=== PATIENT | female | born 1985 | race Caucasian/White ===

== ENCOUNTER 2018-08-30 06:44 | Emergency (ER) | payer MEDICAID ==
[~2018-08-30] VITALS: Wt 61.9 kg
[2018-08-30 06:49] VITALS: BP 122/70; PULSE 84; RESP 16
[2018-08-30] MEDS ORDERED: BENZ-6 PO (07:32)
[2018-08-30] MEDS ORDERED: PROM6.2515 PO (07:32)
[2018-08-30] MEDS ORDERED: AZIT250T PO (07:32)
--- NOTE | 2018-08-30 08:01 | ERD ---
ER Documentation Chief Complaint Chief Complaint COUGH WITH PHLEGM X1 WEEK, MILD SOB, NO FEVER HPI 33-year-old female presenting with productive cough times 1 week. Patient had tactile fevers but no documented fever. Patient has been taking Mucinex. She states not helping. Has tried Delsym with no alleviation. She denies any runny nose or cough. Denies any respiratory problems in the past. Medical history denies. Surgical history denies. Social history denies. No allergies to medications ROS All systems reviewed and are negative except as per history of present illness. Medications Home Meds Active Scripts Benzonatate* (Tessalon Perle*) 100 Mg Capsule, 100 MG PO Q8H PRN for COUGH, #30 CAP Prov:MIO CONWAY PA-C 08/30/18 Promethazine Hcl* (Promethazine Hcl* Syrup) 6.25 Mg/5 Ml Syrup, 6.25 MG PO Q6H PRN for COUGH, #100 ML Prov:MIO CONWAY PA-C 08/30/18 Azithromycin* (Zithromax*) 250 Mg Tablet, 250 MG PO .ZPACK DIRECTED, #6 TAB TAKE 500 MG (2 TABS) THE FIRST DAY THEN 250 MG (1 TAB) DAYS 2-5 Prov:MIO CONWAY PA-C 08/30/18 PMhx/Soc Medical and Surgical Hx: pt denies Medical Hx, pt denies Surgical Hx Hx Alcohol Use: No Hx Substance Use: No Hx Tobacco Use: No Smoking Status: Never smoker FmHx Family History: No diabetes, No coronary disease, No other Physical Exam Vitals Vital Signs Date Temp Pulse Resp B/P (MAP) Pulse Ox O2 O2 Flow FiO2 Time Delivery Rate 08/30/18 97.3 84 16 122/70 100 06:49 (87) Physical Exam GENERAL: The patient is well-appearing, well-nourished, in no acute distress HEENT: Atraumatic. Conjunctivae are pink. Pupils equal, round, and reactive to light. There is no scleral icterus. Tympanic membranes clear bilaterally. Oropharynx clear. No nystagmus or photophobia. NECK: C-spine is soft and supple. There is no meningismus. There is no cervical lymphadenopathy. CHEST: Clear to auscultation bilaterally. There are no rales, wheezes or rhonchi. HEART: Regular rate and rhythm. No murmurs, clicks, rubs or gallops. No S3 or S4. Procedures/MDM DIAGNOSTIC IMAGING REPORT Patient: LUCIA PEREZ : 1985 Age: 33 Sex: F MR #: [id number] DOS: 08/30/18 0657 Ordering MD: RADHA CONWAY PA-C Location: [facility] Room/Bed: PROCEDURE: XR Chest. CLINICAL INDICATION: Cough TECHNIQUE: A single AP view of the chest was obtained. COMPARISON: None. FINDINGS: No focal airspace opacification, pleural effusion or pneumothorax is seen. The cardiomediastinal silhouette is within normal limits for size. The osseous structures are unremarkable. IMPRESSION: Unremarkable chest x-ray. MDM: 33-year-old female presenting with cough. Patient for respiratory distress or hypoxia. I have low suspicion for pneumonia. Patient likely has viral cough. Patient is discharged with supportive medications. I will give antibiotics and recommend patient to refrain from taking medication for the next 2-4 days. Patient was recommended to take supportive medication to antibiotic treatment. Patient is told symptoms change or worsen to immediately return to the ER. All questions answered at discharge Departure Diagnosis: Primary Impression: Cough Condition: Stable Patient Instructions: Cough, Chronic, Uncertain Cause, (Adult) Referrals: [facility] YOU HAVE RECEIVED A MEDICAL SCREENING EXAM AND THE RESULTS INDICATE THAT YOU DO NOT HAVE A CONDITION THAT REQUIRES URGENT TREATMENT IN THE EMERGENCY DEPARTMENT. FURTHER EVALUATION AND TREATMENT OF YOUR CONDITION CAN WAIT UNTIL YOU ARE SEEN IN YOUR DOCTORS OFFICE WITHIN THE NEXT 1-2 DAYS. IT IS YOUR RESPONSIBILITY TO MAKE AN APPOINTMENT FOR FOLOW-UP CARE. IF YOU HAVE A PRIMARY DOCTOR --you should call your primary doctor and schedule an appointment IF YOU DO NOT HAVE A PRIMARY DOCTOR YOU CAN CALL OUR PHYSICIAN REFERRAL HOTLINE AT IF YOU CAN NOT AFFORD TO SEE A PHYSICIAN YOU CAN CHOSE FROM THE FOLLOWING [facility] [address] [facility] [address] [facility] [address] [facility] [address] [facility]. [facility] [address] [facility]. [facility] [address] Additional Instructions: FOLLOW UP WITH YOUR PRIMARY CARE PHYSICIAN TOMORROW.Return to this facility if you are not improving as expected. MIO CONWAY PA-C Aug 30, 2018 08:01
== END 2018-08-30 07:52 | disposition home or self-care (01) ==
LOC: FTE 06:44
DX: R05 Cough (principal)
CPT/HCPCS: 71045; Z7502